=== PATIENT | female | born 1945 | race Caucasian/White ===

== ENCOUNTER 2017-10-26 04:54 | Observation (INO) ==
--- NOTE | 2017-10-26 05:01 | Emergency Department Note ---
Disposition Clinical Impression: Appendicitis Qualifiers: Appendicitis type: acute appendicitis Acute appendicitis type: unspecified acute appendicitis type Qualified Code(s): K35.80 - Unspecified acute appendicitis Nausea and vomiting Qualifiers: Vomiting type: unspecified Vomiting Intractability: non-intractable Qualified Code(s): R11.2 - Nausea with vomiting, unspecified Disposition: Admitted As Inpatient Condition: Fair Referrals: Any Solis MD [Primary Care Provider] - Forms: ED Satisfaction Letter, Work/School Release Time of Disposition: 06:12 Abdominal Pain HPI - General Chief Complaint: ED Abdominal Pain Stated Complaint: vomiting, lower right quadrant pain Time Seen by Provider: 10/26/17 05:00 Source: patient Mode of arrival: ambulatory Limitations: no limitations Nursing Notes Reviewed: Yes Vital Signs Reviewed: Yes - History of Present Illness HPI Narrative: Patient is a 72-year-old female with past medical history of hypertension, hyperlipidemia. She presents today due to diffuse abdominal pain, dry heaving. She states that these symptoms started just prior to bedtime last night, has worsened gradually over night She now has the majority of her pain in the epigastric region. Denies any other fevers, chest pain, shortness of breath, sputum production, dysuria, hematuria, diarrhea, blood in stool. Denies any known sick contacts. Denies any history of diverticulitis, inflammatory bowel disease. Pain Scale: 9 - Related Data Previous Rx's Medication Instructions Recorded OxyCODONE/APAP 5/325 [Percocet 1 each PO Q6HR PRN #15 tablet 09/13/16 5/325] Allergies Allergy/AdvReac Type Severity Reaction Status Date / Time acetaminophen [From Vicodin] Allergy Vomiting Verified 09/13/16 12:34 hydrocodone [From Vicodin] Allergy Vomiting Verified 09/13/16 12:34 All systems ED: reviewed and negative except as stated. Constitutional: Denies: fever Cardiovascular: Denies: chest pain Respiratory: Denies: cough, dyspnea Gastrointestinal: Reports: abdominal pain, nausea. Denies: vomiting, diarrhea, constipation Genitourinary: Denies: urgency, dysuria, frequency, hematuria Integumentary: Denies: rash Neurological: Denies: headache, weakness, numbness, paresthesias Abdominal Pain PMH - Past Medical History Medical history: Reports: hyperlipidemia, hypertension Female Surgical History: Reports: , other SPLITTING MACHINE TENDER history: Reports: no SPLITTING MACHINE TENDER history Psychiatric history: Reports: no psych history - Social History Smoking status: Never smoker Alcohol use: Reports: none Drug use: Reports: none Physical Exam - General Limitations: no limitations General appearance: alert, in no apparent distress - Head Head exam: atraumatic, normocephalic, normal inspection - Eye Eye exam: Present: normal appearance, PERRL, EOMI - ENT ENT exam: normal exam, normal oropharynx, mucous membranes moist - Neck Neck exam: Present: normal inspection, full ROM, trachea midline - Chest Chest inspection: Present: normal inspection, symmetric chest wall rise - Respiratory Respiratory exam: Present: normal lung sounds bilaterally - Cardiovascular Cardiovascular exam: Present: regular rate, normal rhythm, normal heart sounds - Abdominal Exam Abdominal exam: Present: soft, tenderness (Tenderness in the left upper quadrant , right upper quadrant, epigastric region; negative Cage's; tenderness at McBurneys). Absent: distention, guarding, rebound, rigidity - Extremities Exam Extremities exam: Present: normal inspection, full ROM. Absent: tenderness, pedal edema - Neurological Exam Neurological exam: Present: alert, oriented X3 - Psychiatric Psychiatric exam: Present: normal affect, normal mood - Skin Skin exam: Present: warm, dry, intact, normal color Course Course Narrative: Patient is hypertensive on presentation. Otherwise, the rest of the vitals within normal limits. Physical exam was positive for upper abdominal tenderness in the right upper quadrant, left upper quadrant, epigastric region. Otherwise negative McBurney's; positive Cage's. Percocet was ordered for pain control, fluids were ordered due to dry mucous membranes, Zofran was ordered for nausea control. Also obtain CT abdomen and pelvis for further assessment of anything like bowel obstruction or diverticulitis. Labs ordered including LFTs and lipase to assess for gallbladder etiology or pancreatitis. 06:10 urinalysis negative. CBC and BMP, LFTs, lipase pending. CT abdomen and pelvis was positive for acute appendicitis with no rupture. Dr. Ordaz has been contacted with surgery. He has accepted the patient for admission to his service. He will follow-up on pending labs. Abdomen/Pelvis CT 10/26/17 05:06 IMPRESSION: Acute appendicitis. No rupture. D/ / Neville English MD / Neville English MD Interpreting Provider: Neville English MD Vital Signs Temperature 98.0 F 10/26/17 04:55 Pulse Rate 75 10/26/17 04:55 Respiratory Rate 20 10/26/17 04:55 Blood Pressure 165/92 10/26/17 04:55 O2 Sat by Pulse Oximetry 98 10/26/17 04:55 Temperature 98.0 F 10/26/17 04:55 Pulse Rate 75 10/26/17 04:55 Respiratory Rate 20 10/26/17 04:55 Blood Pressure 165/92 10/26/17 04:55 O2 Sat by Pulse Oximetry 98 10/26/17 04:55 Oxygen Delivery Oxygen Delivery Room Air Abdominal Pain - MDM Narrative Medical decision making narrative: Patient is hypertensive on presentation. Otherwise, the rest of the vitals within normal limits. Physical exam was positive for upper abdominal tenderness in the right upper quadrant, left upper quadrant, epigastric region. Otherwise negative McBurney's; positive Cage's. Percocet was ordered for pain control, fluids were ordered due to dry mucous membranes, Zofran was ordered for nausea control. Also obtain CT abdomen and pelvis for further assessment of anything like bowel obstruction or diverticulitis. Labs ordered including LFTs and lipase to assess for gallbladder etiology or pancreatitis. 06:10 urinalysis negative. CBC and BMP, LFTs, lipase pending. CT abdomen and pelvis was positive for acute appendicitis with no rupture. Dr. Ordaz has been contacted with surgery. He has accepted the patient for admission to his service. He will follow-up on pending labs. - Medical Records Medical records reviewed: Yes I reviewed the patient's medical records. - Lab Data Lab results reviewed: Yes I reviewed the patient's lab results. Lab Results 10/26/17 Range/Units 05:50 Urine Color Yellow (Yellow) Urine Clarity Clear (Clear) Urine pH 7.5 (5.0-8.0) pH Units Ur Specific [place] 1.025 (1.010-1.025) Urine Protein Trace (Neg-Trace) mg/dL Urine Glucose (UA) Normal (Normal) mg/dL Urine Ketones Trace H (Negative) mg/dL Urine Blood Negative (Negative) Urine Nitrite Negative (Negative) Urine Bilirubin Negative (Negative) Urine Urobilinogen Normal (Normal) mg/dL Ur Leukocyte Esterase Negative (Negative) - Radiology Data Radiology results reviewed: Yes I reviewed the patient's radiology results. Abdomen/Pelvis CT 10/26/17 05:06 IMPRESSION: Acute appendicitis. No rupture. D/ / Neville English MD / Neville English MD Interpreting Provider: Neville English MD rmen - Chhaya Situation: Demographics, MOA Background: Presenting Complaint, Relevant PMH, Meds, & Allergies Assessment: Vital Signs, Course and respsone to treatment, Exam Concerns, Patient/Family Expectation, Pertinant Lab Results Recommendation: Barrier(s) to disposition, Recommendation based on pending studies, treatments, or consults Chhaya Report Given to: Dr. Orlin Shaver Repor Time: 06:11
[2017-10-26] MEDS ORDERED: Ondansetron 4 MG/2 ML VIAL IVP ONE ×2 (05:06→08:19)
[2017-10-26] MEDS ORDERED: 0.9 % Sodium Chloride 1,000 ML IVC ONE (05:06)
[2017-10-26] MEDS ORDERED: *HR* OxyCODONE/APAP 5/325 TABLET PO ONE (05:07)
[2017-10-26] MEDS ORDERED: Piperacillin/Tazobactam 3.375 GM in 0.9 % Sodium Chloride Mini Bag 100 ML IVPB ONE (06:01)
[2017-10-26 06:05] LABS: Bilirubin,Urine Negative (Negative); Blood,Urine Negative (Negative); Clarity,Urine Clear (Clear); Color,Urine Yellow (Yellow); Glucose,Urine (UA) Normal (Normal); Ketones,Urine Trace mg/dL (Negative); Leukocyte Esterase,Urine Negative (Negative); Nitrite,Urine Negative (Negative); PH,Urine 7.5 pH Units (5.0-8.0); Protein,Urine Trace mg/dL (Neg-Trace); Specific Gravity,Urine 1.025 (1.010-1.025); Urobilinogen,Urine Normal (Normal)
[2017-10-26 06:08] LABS: Bacteria,Urine None Seen per hpf (None-Few); Hyaline Casts,Urine None Seen per lpf (None-Few); Squamous Epithelial Cell,Urine Moderate per lpf (None-Few); WBC,Urine 0-3 per hpf (0-3)
--- NOTE | 2017-10-26 06:12 | Emergency Department Note ---
Disposition Clinical Impression: Appendicitis Qualifiers: Appendicitis type: unspecified Qualified Code(s): K37 - Unspecified appendicitis Nausea and vomiting Qualifiers: Vomiting type: unspecified Vomiting Intractability: unspecified Qualified Code( s): R11.2 - Nausea with vomiting, unspecified Disposition: Admitted As Inpatient Condition: Fair General Adult HPI - General Chief complaint: ED Abdominal Pain Stated complaint: vomiting, lower right quadrant pain Time Seen by Provider: 10/26/17 05:00 Source: patient Mode of arrival: ambulatory Limitations: no limitations - History of Present Illness Pain Scale: 9 - Related Data Home Medications Medication Instructions Recorded Confirmed Atorvastatin [Lipitor] 40 mg PO HS 10/26/17 10/26/17 LORazepam [Ativan] 0.5 mg PO DAILY PRN 10/26/17 10/26/17 Losartan Potassium [Cozaar] 50 mg PO DAILY 10/26/17 10/26/17 Omeprazole [PriLOSEC] 40 mg PO DAILY 10/26/17 10/26/17 Potassium Chloride [K-Tab ER] 20 meq PO DAILY 10/26/17 10/26/17 Triamterene/HCTZ 37.5/25mg 1 tab PO DAILY 10/26/17 10/26/17 [Dyazide] Umeclidinium Gunpowder [Incruse 1 puff IH DAILY 10/26/17 10/26/17 Ellipta] Previous Rx's Medication Instructions Recorded Docusate [Colace] 100 mg PO BID PRN #30 capsule 10/26/17 Ibuprofen [Motrin] 800 mg PO Q8HR PRN #42 tablet 10/26/17 Ondansetron ODT [Zofran ODT] 4 mg SL Q6HR PRN #15 tab.rapdis 10/26/17 OxyCODONE/APAP 5/325 [Percocet 1 each PO Q6HR PRN 7 Days #28 10/26/17 5/325 MG] tablet Allergies Allergy/AdvReac Type Severity Reaction Status Date / Time acetaminophen [From Vicodin] Allergy Vomiting Verified 09/13/16 12:34 hydrocodone [From Vicodin] Allergy Vomiting Verified 09/13/16 12:34 Constitutional: Denies: fever Cardiovascular: Denies: chest pain Respiratory: Denies: cough, dyspnea Gastrointestinal: Reports: abdominal pain, nausea. Denies: vomiting, diarrhea, constipation Genitourinary: Denies: urgency, dysuria, frequency, hematuria Integumentary: Denies: rash Neurological: Denies: headache, weakness, numbness, paresthesias Past Medical History - Past Medical History Medical history: Reports: hyperlipidemia, hypertension Psychiatric history: Reports: no psych history PRODUCE ASSOCIATE history: Reports: no PRODUCE ASSOCIATE history - Social History Smoking Status: Never smoker Smokeless Tobacco Status: No Alcohol use: Reports: none Drug use: Reports: none Physical Exam - General Limitations: no limitations General appearance: alert, in no apparent distress Course Vital Signs Temperature 98.0 F 10/26/17 04:55 Pulse Rate 75 10/26/17 04:55 Respiratory Rate 20 10/26/17 04:55 Blood Pressure 165/92 10/26/17 04:55 O2 Sat by Pulse Oximetry 98 10/26/17 04:55 Temperature 98.2 F 10/26/17 12:58 Pulse Rate 82 10/26/17 12:58 Respiratory Rate 18 10/26/17 12:58 Blood Pressure 130/75 10/26/17 12:58 O2 Sat by Pulse Oximetry 93 10/26/17 11:30 Oxygen Delivery Oxygen Delivery Room Air Medical Decision Making - Lab Data Result diagrams: 10/26/17 06:00 10/26/17 06:00 Lab Results 10/26/17 10/26/17 10/26/17 Range/Units 05:50 06:00 06:00 WBC 13.2 H (4.3-11.1) K/mcL RBC 4.38 (3.82-4.97) M/mcL Hgb 13.9 (11.5-15.4) g/dL Hct 40.0 (35.3-44.9) % MCV 91.3 (83.0-100.0) fL MCH 31.7 (28.0-33.3) pg MCHC 34.8 (31.6-35.5) g/dL RDW 12.8 (11.5-14.5) % Plt Count 305 (140-400) K/mcL MPV 8.7 L (9.4-12.4) fL Immature Gran % 0.3 (0-4) % Seg Neutrophils % 86.2 % Lymphocytes % 8.5 % Monocytes % 4.1 % Eosinophils % 0.3 % Basophils % 0.6 % Neutrophils # 11.4 H (1.6-8.9) K/mcL Lymphocytes # 1.1 (0.6-4.6) K/mcL Monocytes # 0.5 (0.0-1.3) K/mcL Eosinophils # 0.0 (0.0-0.6) K/mcL Basophils # 0.1 (0.0-0.2) K/mcL PT 9.9 (9.4-12.1) Seconds INR 0.9 Sodium (136-145) mEq/L Potassium (3.5-5.1) mEq/L Chloride (98-107) mEq/L Carbon Dioxide (23-29) mEq/L BUN (8-23) mg/dL Creatinine (0.60-1.20) mg/dL Est GFR ( Amer) (> 60) Est GFR (Non-Af Amer) (> 60) BUN/Creatinine Ratio (6-26) Glucose (70-105) mg/dL Calculated Osmolality (280-300) Lactic Acid (0.5-2.2) mmol/L Calcium (8.6-10.3) mg/dL Total Bilirubin (0.3-1.0) mg/dL Direct Bilirubin (0.0-0.2) mg/dL Indirect Bilirubin (0.0-1.2) mg/dL AST (13-39) Units/L ALT (7-52) Units/L Alkaline Phosphatase (34-104) Units/L Troponin I (< 0.04) ng/mL Serum Total Protein (6.4-8.9) g/dL Albumin (3.5-5.7) g/dL Globulin (2.4-3.5) g/dL Albumin/Globulin Ratio (1.1-2.2) Amylase (29-103) Units/L Lipase (11-82) Units/L Urine Color Yellow (Yellow) Urine Clarity Clear (Clear) Urine pH 7.5 (5.0-8.0) pH Units Ur Specific [place] 1.025 (1.010-1.025) Urine Protein Trace (Neg-Trace) mg/dL Urine Glucose (UA) Normal (Normal) mg/dL Urine Ketones Trace H (Negative) mg/dL Urine Blood Negative (Negative) Urine Nitrite Negative (Negative) Urine Bilirubin Negative (Negative) Urine Urobilinogen Normal (Normal) mg/dL Ur Leukocyte Esterase Negative (Negative) Urine Microscopic RBC 5-15 H (0-3) per hpf Urine Microscopic WBC 0-3 (0-3) per hpf Ur Squamous Epith Cells Moderate H (None-Few) per lpf Urine Bacteria None Seen (None-Few) per hpf Hyaline Casts None Seen (None-Few) per lpf Ur Culture Indicated? NO (NO) 10/26/17 10/26/17 Range/Units 06:00 06:00 WBC (4.3-11.1) K/mcL RBC (3.82-4.97) M/mcL Hgb (11.5-15.4) g/dL Hct (35.3-44.9) % MCV (83.0-100.0) fL MCH (28.0-33.3) pg MCHC (31.6-35.5) g/dL RDW (11.5-14.5) % Plt Count (140-400) K/mcL MPV (9.4-12.4) fL Immature Gran % (0-4) % Seg Neutrophils % % Lymphocytes % % Monocytes % % Eosinophils % % Basophils % % Neutrophils # (1.6-8.9) K/mcL Lymphocytes # (0.6-4.6) K/mcL Monocytes # (0.0-1.3) K/mcL Eosinophils # (0.0-0.6) K/mcL Basophils # (0.0-0.2) K/mcL PT (9.4-12.1) Seconds INR Sodium 135 L (136-145) mEq/L Potassium 3.1 L (3.5-5.1) mEq/L Chloride 100 (98-107) mEq/L Carbon Dioxide 24 (23-29) mEq/L BUN 15 (8-23) mg/dL Creatinine 0.84 (0.60-1.20) mg/dL Est GFR ( Amer) > 60 (> 60) Est GFR (Non-Af Amer) > 60 (> 60) BUN/Creatinine Ratio 18 (6-26) Glucose 168 H (70-105) mg/dL Calculated Osmolality 285 (280-300) Lactic Acid 3.5 H (0.5-2.2) mmol/L Calcium 9.6 (8.6-10.3) mg/dL Total Bilirubin 0.6 (0.3-1.0) mg/dL Direct Bilirubin 0.2 (0.0-0.2) mg/dL Indirect Bilirubin 0.4 (0.0-1.2) mg/dL AST 25 (13-39) Units/L ALT 24 (7-52) Units/L Alkaline Phosphatase 95 (34-104) Units/L Troponin I < 0.03 (< 0.04) ng/mL Serum Total Protein 6.8 (6.4-8.9) g/dL Albumin 4.4 (3.5-5.7) g/dL Globulin 2.4 (2.4-3.5) g/dL Albumin/Globulin Ratio 1.8 (1.1-2.2) Amylase 41 (29-103) Units/L Lipase 24 (11-82) Units/L Urine Color (Yellow) Urine Clarity (Clear) Urine pH (5.0-8.0) pH Units Ur Specific [place] (1.010-1.025) Urine Protein (Neg-Trace) mg/dL Urine Glucose (UA) (Normal) mg/dL Urine Ketones (Negative) mg/dL Urine Blood (Negative) Urine Nitrite (Negative) Urine Bilirubin (Negative) Urine Urobilinogen (Normal) mg/dL Ur Leukocyte Esterase (Negative) Urine Microscopic RBC (0-3) per hpf Urine Microscopic WBC (0-3) per hpf Ur Squamous Epith Cells (None-Few) per lpf Urine Bacteria (None-Few) per hpf Hyaline Casts (None-Few) per lpf Ur Culture Indicated? (NO) Attestation Statement - Attestation Attestation: I examined this patient and my medical decision-making was reviewed with the Resident Physician. I agree with the documented findings, disposition and treatment plan as described except to the extent set forth below. Acute uncomplicated appendicitis. Gen. surgery consult. Patient will be admitted for further management.
[2017-10-26 06:24] LABS: Basophils # 0.1 K/mcL (0.0-0.2); Basophils % 0.6 %; Eosinophils % 0.3 %; Hemoglobin 13.9 g/dL (11.5-15.4); Immature Granulocytes % 0.3 % (0-4); Lymphocytes # 1.1 K/mcL (0.6-4.6); Lymphocytes % 8.5 %; Mean Corpuscular HGB Conc 34.8 g/dL (31.6-35.5); Mean Corpuscular Hemoglobin 31.7 pg (28.0-33.3); Mean Corpuscular Volume 91.3 fL (83.0-100.0); Mean Platelet Volume 8.7 fL (9.4-12.4); Monocytes # 0.5 K/mcL (0.0-1.3); Monocytes % 4.1 %; Neutrophils # 11.4 K/mcL (1.6-8.9); Platelet Count 305 K/mcL (140-400); Red Blood Count 4.38 M/mcL (3.82-4.97); Red Cell Distribution Width 12.8 % (11.5-14.5); Segmented Neutrophils % 86.2 %
[2017-10-26 06:28] LABS: INR 0.9; Prothrombin Time 9.9 Seconds (9.4-12.1)
[2017-10-26 06:43] LABS: Troponin I < 0.03 ng/mL (< 0.04)
[2017-10-26 06:45] LABS: Alanine Aminotransferase 24 Units/L (7-52); Albumin 4.4 g/dL (3.5-5.7); Albumin/Globulin Ratio 1.8 (1.1-2.2); Alkaline Phosphatase 95 Units/L (34-104); Amylase 41 Units/L (29-103); Aspartate Amino Transferase 25 Units/L (13-39); BUN/Creatinine Ratio 18 (6-26); Bilirubin,Direct 0.2 mg/dL (0.0-0.2); Bilirubin,Indirect 0.4 mg/dL (0.0-1.2); Bilirubin,Total 0.6 mg/dL (0.3-1.0); Blood Urea Nitrogen 15 mg/dL (8-23); Calcium 9.6 mg/dL (8.6-10.3); Carbon Dioxide 24 mEq/L (23-29); Chloride 100 mEq/L (98-107); Globulin 2.4 g/dL (2.4-3.5); Glucose 168 mg/dL (70-105); Lipase 24 Units/L (11-82); Osmolality,Calculated 285 (280-300); Potassium 3.1 mEq/L (3.5-5.1); Sodium 135 mEq/L (136-145); Total Protein 6.8 g/dL (6.4-8.9); eGFR For African Americans > 60 (> 60); eGFR For Non-African Americans > 60 (> 60)
--- NOTE | 2017-10-26 06:56 | General Surg History&Physical ---
Date of Encounter: 10/26/17 Time of Encounter: 06:54 Assessment and Plan (1) Appendicitis Current Visit: Yes Status: Acute 72F with acute appendicitis with associated appendicoliths; NPO Consent admit abx plan for OR for lap appy; The assessment and plan as outlined above was discussed with the patient and/or family members who expressed understanding and agreement. All questions were answered. Qualifiers: Appendicitis type: acute appendicitis Acute appendicitis type: with localized peritonitis Qualified Code(s): K35.3 - Acute appendicitis with localized peritonitis History of Present Illness Chief complaint: abdominal pain HPI: Ms. Mccullough is a 72 year old female who is pretty healthy for her age who presents with 6 hours of worsening RLQ abdominal pain with associated nausea, dry heaves; no reports of fevers. She came to the hospital because the pain would not resolve in a timely fashion. The CT was done, which was evaluated and intepreted by me with assistance from radiology demonstrates and appendicolith and associated inflammation. Past Med Surg Social Fam HX - Past Medical History Medical history: hyperlipidemia, hypertension Psychiatric history: no psych history - Past Surgical History Surgical History: - Social History Smoking Status: Never smoker Smokeless Tobacco Status: No Alcohol use: none Drug use: none - Additional Family History Additional family history: non contributory Medications and Allergies OxyCODONE/APAP 5/325 [Percocet 5/325] 1 each PO Q6HR PRN #15 tablet 09/13/16 [Rx ] 3 Allergy/AdvReac Type Severity Reaction Status Date / Time acetaminophen [From Vicodin] Allergy Vomiting Verified 09/13/16 12:34 hydrocodone [From Vicodin] Allergy Vomiting Verified 09/13/16 12:34 Review of Systems All systems PM: The remainder of the systems were reviewed and are negative General Surgery Exam Initial Vital Signs Temp Pulse Resp BP Pulse Ox 98.0 F 75 20 165/92 98 10/26/17 04:55 10/26/17 04:55 10/26/17 04:55 10/26/17 04:55 10/26/17 04:55 - General physical appearance well developed, no distress - Eyes normal ocular movement - ENT normocephalic - Neck no lymphadectomy - Respiratory normal expansion, normal respiratory effort - Cardiovascular Cardiovascular exam: Present: RRR - Abdomen Abdomen general surgery: Present: soft, tender Abdominal Tenderness: Present: RLQ ((-) Rosving sign) - Integumentary Integumentary general surgery: Present: warm and dry - Neurologic Present: CN 2-12 grossly intact - Psychiatric Psychiatric general surgery: Present: A&Ox3 Results - Labs 10/26/17 06:00 10/26/17 06:00 Abnormal lab results WBC 13.2 K/mcL (4.3-11.1) H 10/26/17 06:00 MPV 8.7 fL (9.4-12.4) L 10/26/17 06:00 Neutrophils # 11.4 K/mcL (1.6-8.9) H 10/26/17 06:00 Sodium 135 mEq/L (136-145) L 10/26/17 06:00 Potassium 3.1 mEq/L (3.5-5.1) L 10/26/17 06:00 Glucose 168 mg/dL (70-105) H 10/26/17 06:00 Lactic Acid 3.5 mmol/L (0.5-2.2) H 10/26/17 06:00 Urine Ketones Trace mg/dL (Negative) H 10/26/17 05:50 Urine Microscopic RBC 5-15 per hpf (0-3) H 10/26/17 05:50 Ur Squamous Epith Cells Moderate per lpf (None-Few) H 10/26/17 05:50 All other labs normal. - Imaging CT scan - abdomen: report reviewed, image reviewed CT scan - pelvis: report reviewed, image reviewed
[2017-10-26] MEDS ORDERED: *HR* FentaNYL (PF) 100 MCG/2 ML VIAL ONE (07:10)
[2017-10-26] MEDS ORDERED: *HR* Propofol 200 MG/20 ML VIAL IVP ONE (07:10)
--- NOTE | 2017-10-26 07:27 | Anesthesia Evaluation PreOp ---
Date of Encounter: 10/26/17 Time of Encounter: 07:25 - Past History Planned Operation: Lap. Appy Cardiac History: HTN, Hyperlipidemia Pulmonary History: Denies Any Significant HX METER TESTER POLYPHASE History: Denies Any Significant HX Other Medical History: Denies Any Significant HX Anesthesia History: No Prior Anesthetic Complications, Past Anesthesia (c/s, lipoma removal) : No Alcohol Use: none Drug use: none Medications and Allergies OxyCODONE/APAP 5/325 [Percocet 5/325] 1 each PO Q6HR PRN #15 tablet 09/13/16 [Rx ] 3 Allergy/AdvReac Type Severity Reaction Status Date / Time acetaminophen [From Vicodin] Allergy Vomiting Verified 09/13/16 12:34 hydrocodone [From Vicodin] Allergy Vomiting Verified 09/13/16 12:34 - Meds/Allergy Pre-op Review Medications Reviewed: Yes Allergies Reviewed: Yes Beta Blockers on Current Med List: No Anesthesia Results - Labs 10/26/17 06:00 10/26/17 06:00 Date of Study: 03/12/2015 Date: 1945 Ht: 64.0 in Medical Record#: [id number] Age: 69 Wt: 160.0 lb Gender: Female BSA: 1.78 Order #: [id number] Location: [facility] OP Room #: Reading Physician: Bob Kim DO Inpatient Care Manager Rn: Majo Almanza [facility] Ordering Physician: Any Rubio MD Primary Physician: Indications: Syncope Impressions: LVEF 60-65%. Normal left ventricular structure and function. Mild left ventricular diastolic dysfunction. Normal right ventricular structure and function. No evidence of pulmonary hypertension. No significant valvular dysfunction. Trace TR. 05/13/17 Stress EF-69% No Ischemia Anesthesia Exam Vital Signs/O2 Sat, Most Current Temp Pulse Resp BP Pulse Ox 98.0 F 75 20 165/92 98 10/26/17 04:55 10/26/17 04:55 10/26/17 04:55 10/26/17 04:55 10/26/17 04:55 - HEENT Pupil (Motor): Pupils equal, EOMI Mallampati: II Teeth: Normal Oral Opening: Greater than 3 - METER TESTER POLYPHASE LOC: Oriented METER TESTER POLYPHASE Motor: Normal RUE, Normal LUE, Normal RLE, Normal LLE, Normal Face METER TESTER POLYPHASE Sensory: Normal: RUE, LUE, RLE, LLE, Face - Cardiac Rhythm: Regular Murmur: None JVD: No Carotid Bruit: No - Pulmonary Breath Sounds: bilateral Clear Respiratory Effort: Symmetrical Anesthesia Assess/Plan ASA Score: 2 Modified Thad Scale for Level of Consciousness: Cooperative, oriented, and tranquil Anesthetic Plan: General Autologous Blood: Yes Monitoring Plan: Standard Monitors Recovery Plan: PACU
[2017-10-26] MEDS ORDERED: EPHEDrine 50 MG/ML VIAL ONE (07:54)
[2017-10-26] MEDS ORDERED: *HR* Succinylcholine 200 MG/10 ML VIAL IVP ONE (08:07)
[2017-10-26] MEDS ORDERED: Lidocaine -MPF 2% 2 ML VIAL ONE (08:07)
[2017-10-26] MEDS ORDERED: Dexamethasone 4 MG/ML VIAL ONE (08:07)
[2017-10-26] MEDS ORDERED: *HR* Rocuronium Bromide 50 MG/5 ML VIAL ONE (08:07)
[2017-10-26] MEDS ORDERED: Ondansetron 4 MG/2 ML VIAL ONE (08:07)
[2017-10-26] MEDS ORDERED: Neostigmine Methylsulfate 3 MG/3 ML SYRINGE ONE (08:15)
[2017-10-26] MEDS ORDERED: Acetaminophen IV 1,000 MG/100 ML INFUS..BTL IVPB ONE (08:19)
[2017-10-26] MEDS ORDERED: *HR* HYDROmorphone 2 MG TABLET PO PRN (08:19)
[2017-10-26] MEDS ORDERED: MORPHINE SUL Oral CONC 10 MG/0.5 ML ORAL.SYG SL PRN (08:19)
[2017-10-26] MEDS ORDERED: Ketorolac 30 MG/ML VIAL ONE (08:23)
--- NOTE | 2017-10-26 09:20 | Anesthesia Evaluation Post Op ---
Date of Encounter: 10/26/17 Time of Encounter: 09:20 - Vital Signs Vital Signs: Vital Signs/O2 Sat/Glucose, Most Current Temp Pulse Resp BP Pulse Ox 10/26/17 09:12 97.3 F L 77 18 128/67 97 10/26/17 09:02 77 17 132/69 95 10/26/17 08:52 67 16 133/67 95 10/26/17 08:42 98.1 F 85 18 142/73 98 - Lungs Lungs: Clear Ascult./Percussion - Airway Airway: Non-obstructed - Cardiovascular Regular Rate - Mental Status Mental Status: Alert & Oriented, Answers Appropriately - Pain Pain Scale: 0 - Nausea Vomiting Nausea Vomiting: Not Present - Hydration Hydration: Ice chips - Discharge PostOp Status: Transfer Patient to floor
[2017-10-26] MEDS ORDERED: Potassium Chloride Elixir 20 MEQ/15 ML UDC PO ONE ×2 (09:29→10:25)
--- NOTE | 2017-10-26 09:48 | Operative Note ---
Date of procedure: 10/26/17 Pre-op diagnosis: acute appendicits Post-op diagnosis: same Procedure: laparoscopic appendectomy Implants: none Complications: none Anesthesia: GETA Local Anesthetics: 0.5% Sensorcaine HCL SubQ (cc) Surgeon: Jason Ordaz Was there an school psychologist assistant present: Yes Fast Food Attendant: Carley Austin Estimated blood loss (cc): 5 Specimen: appendix Condition: stable Disposition: PACU Procedure in Detail: The patient was brought into the operating room suite. The patient was placed in the supine position. Mechanical DVT prophylaxis was initiated. The patient underwent smooth induction of general endotracheal anesthesia. The patient was prepped and draped in the usual fashion. Preoperative antibiotics were given. A timeout was held identifying the correct patient, pathology, and procedure. Everyone was in agreement and we began a procedure. Incision to Mesenteric Window I started bycreating a supraumbilical incision and via open Rodriguez technique entered into the abdomen. I then used a Vicryl suture on a UR 6 needle in a [id number] fashion to reapproximate but not close the fascia. I then inserted the 10 trocar followed by the camera to visualize the intraabdominal cavity. I then created a 5 mm incision suprapubically and inserted the 5 mm trocar under direct visualization. Roughly 1 handbreadth lateral to the umbilical incision I created another 5 mm incision and inserted another 5 mm trocar under direct visualization. I then inserted the nontraumatic instruments into the 5 mm ports and began the procedure. I was able to identify the tinea coli coalescing at the base of the cecum to identify the appendix. It was clearly acute inflammed. Using the nontraumatic grasper I was able to grasp the appendix and then using the [place] dissector was able to create a mesenteric window. Mesenteric Window to Appendectomy I then inserted the nontraumatic grasper into the same mesenteric window to widen it. I then grasped the appendix and switched from the 10 mm camera to the 5 mm camera so that we can insert the stapler through the umbilical port. The teeth of the stapler through the mesenteric window. It should be stated that the stapler was a 45 mm bowel load stapler. It was positioned at the base of the appendix and I was able to confirm under direct visualization that the teeth contained no other structures such as the cecum. I then fired the stapler and resected the appendix from the base of the cecum. I then loaded up a vascular load stapler and then in the similar fashion did fire across the mesentery. Retrieval to Closure I then inserted the Endo Catch bag to retrieve the specimen which was intact upon retrieval. I then switched back to the 10 mm camera and inserted the nontraumatic grasper as well as a suction-classroom technology coach into the 5 mm ports. And under direct visualization I was able to appreciate the staple line of the mesoappendix as well as the staple line of the base of the cecum. There was no obvious leaking nor bleeding. The pelvis did not have any collection of fluid. I then concluded the procedure, turned off the insufflation, removed the trochars under direct visualization, and then closed the umbilical fascia using the Vicryl suture that was placed at the beginning. I then closed all incisions with interrupted 4-0 Monocryl. And then sealed with Dermabon. It should be stated that I did use 0.5% Marcaine as a local anesthetic. The patient tolerated the procedure well and did go back to PACU in stable condition.
[2017-10-26] MEDS ORDERED: D5% in 0.45% NACL 1,000 ML IVC SCH (10:25)
[2017-10-26] MEDS ORDERED: *HR* Enoxaparin 40 MG/0.4 ML SYRINGE SQ ONE (10:25)
--- NOTE | 2017-10-26 10:39 | Discharge Summary ---
<Henry Marshall - Last Filed: 10/26/17 10:55> Orders not resulted at time of discharge: Pending orders 10/26/17 08:28 Surgical Pathology [PTH] Routine Date of Encounter: 10/26/17 Time of Encounter: 10:42 - Discharge Diagnosis (1) S/P laparoscopic appendectomy Priority: Primary Status: Acute General Surgery Exam Initial Vital Signs Temp Pulse Resp BP Pulse Ox 98.0 F 75 20 165/92 98 10/26/17 04:55 10/26/17 04:55 10/26/17 04:55 10/26/17 04:55 10/26/17 04:55 - General physical appearance well developed, well nourished, no distress - Eyes normal ocular movement - ENT normal mucosa - Neck no lymphadectomy - Respiratory clear to auscultation, other (slightly groggy after OR; deep inspiration raises O2 sat to 97+) - Cardiovascular Cardiovascular exam: Present: RRR, no murmurs/rubs/gallops - Abdomen Abdomen general surgery: Present: soft. Absent: guarding, rigid - Incision Incision: Present: clean and dry, intact. Absent: inflamed, purulent - Integumentary Integumentary general surgery: Present: warm and dry, no abnormal pigmentation - Neurologic Present: normal sensation - Psychiatric Psychiatric general surgery: Present: appropriate, speech is normal, memory intact - Hospital Course Hospital course: Ms. Mccullough is a 72 year old female who presented to the ED for 6 hours of worsening RLQ pain; patient's CT showed appendiceal inflammation with fecoliths. Patient was brought to the OR for laparoscopic appendectomy with Dr. Ordaz. Patient was transferred to the floor for post-op recovery. She endorses good pain control, at this time a few hours post-op, she has not urinated. We plan for conditional discharge today parameters being: tolerating liquids without nausea or vomiting, pain in control, ambulation, voiding, stable vitals , no fever. - Time Spent with Patient Total time spent providing and/or coordinating discharge services: - Discharge Medications Prescriptions: Ondansetron ODT [Zofran ODT] 4 mg SL Q6HR PRN #15 tab.rapdis PRN Reason: Nausea OxyCODONE/APAP 5/325 [Percocet 5/325 MG] 1 each PO Q6HR PRN 7 Days #28 tablet PRN Reason: Pain Ibuprofen [Motrin] 800 mg PO Q8HR PRN #42 tablet PRN Reason: Pain Docusate [Colace] 100 mg PO BID PRN #30 capsule PRN Reason: Constipation Home Medications: Atorvastatin [Lipitor] 40 mg PO HS 10/26/17 [History] Docusate [Colace] 100 mg PO BID PRN #30 capsule 10/26/17 [Rx] Ibuprofen [Motrin] 800 mg PO Q8HR PRN #42 tablet 10/26/17 [Rx] LORazepam [Ativan] 0.5 mg PO DAILY PRN 10/26/17 [History] Losartan Potassium [Cozaar] 50 mg PO DAILY 10/26/17 [History] Omeprazole [PriLOSEC] 40 mg PO DAILY 10/26/17 [History] Ondansetron ODT [Zofran ODT] 4 mg SL Q6HR PRN #15 tab.rapdis 10/26/17 [Rx] OxyCODONE/APAP 5/325 [Percocet 5/325 MG] 1 each PO Q6HR PRN 7 Days #28 tablet [Rx] Potassium Chloride [K-Tab ER] 20 meq PO DAILY 10/26/17 [History] Triamterene/HCTZ 37.5/25mg [Dyazide] 1 tab PO DAILY 10/26/17 [History] Umeclidinium [place] [Incruse Ellipta] 1 puff IH DAILY 10/26/17 [History] Allergies/Adverse Reactions: 3 Allergy/AdvReac Type Severity Reaction Status Date / Time acetaminophen [From Vicodin] Allergy Vomiting Verified 09/13/16 12:34 hydrocodone [From Vicodin] Allergy Vomiting Verified 09/13/16 12:34 Date of admission: 10/26/17 06:19 Primary care physician: Any Perez-[facility] - Patient Status Disposition: Home, Self-Care Condition: Fair Overall status at discharge: patient is progressing back to baseline - Discharge Instructions Follow Up With: Any West CNP [Advanced Practice Nurse] - 11/07/17 1:30 pm (f/u lap appy ([place]) 10/26/17) Additional Instructions: General Surgical Discharge Instructions 1. No pushing, pulling, or lifting greater than 15 lbs for 2-4 weeks (depending upon procedure). 2. You may shower beginning today, but no tub baths, soaking, or swimming for 2 weeks. 3. You may resume driving when you are off narcotics and are safe to react in a car. 4. Take ibuprofen every 8 hours for discomfort. If this does not relieve discomfort, you may take the as needed Percocet. Take narcotics as directed. Do not take more narcotics then directed and do not share your narcotics with any other person. Do not drink alcohol while on narcotics. 5. Take stool softeners (Colace) or a water based laxative (Miralax) while taking narcotics. You may hold for loose stools. 6. Report any fevers greater than 100.5F, increase abdominal discomfort, drainage that looks like pus, increased redness or pain at the surgical site, or any vomiting. 7. Report any pain in the calves, shortness of breath, or rapid heartbeat. 8. Follow-up in the office as directed. 9. If you were prescribed antibiotics, do not stop them without talking to your provider. - Diet and Activity Activity: resume usual activities as tolerated Diet: advance to your usual diet <Jason Ordaz - Last Filed: 10/26/17 15:26> Orders not resulted at time of discharge: Pending orders 10/26/17 08:28 Surgical Pathology [PTH] Routine Date of Encounter: 10/26/17 - Discharge Diagnosis (1) Appendicitis Status: Acute Qualifiers: Appendicitis type: acute appendicitis Acute appendicitis type: with localized peritonitis Qualified Code(s): K35.3 - Acute appendicitis with localized peritonitis General Surgery Exam Initial Vital Signs Temp Pulse Resp BP Pulse Ox 98.0 F 75 20 165/92 98 10/26/17 04:55 10/26/17 04:55 10/26/17 04:55 10/26/17 04:55 10/26/17 04:55 - Hospital Course Hospital course: Ms. Mccullough is a 72 year old female - Time Spent with Patient Total time spent providing and/or coordinating discharge services: Date of admission: 10/26/17 06:19 Primary care physician: Any Perez-[facility] - Attending Attestation I have personally seen and examined the patient. I have reviewed pertinent labs , imaging, progress notes, including this one. I agree with the above assessment and plan
[2017-10-26] MEDS ORDERED: *HR* OxyCODONE Immed Rel 5 MG TABLET PO PRN (10:50)
[2017-10-26 13:00] VITALS: BP 130/75
== END 2017-10-26 13:18 | disposition home or self-care (01) ==
LOC: EMEROO 04:54 → 3ANU 04:54
PROVIDERS: ADMIT Surgery; ATTEND Surgery